=== PATIENT | female | born 1995 | race Caucasian/White ===

== ENCOUNTER 2020-06-29 11:07 | Inpatient (IN) | payer BC ==
[~2020-06-29] VITALS: Ht 170.2 cm; Wt 117.7 kg
[2020-06-29] VITALS (45 sets, daily range): BP systolic 126–162; BP diastolic 60–106; PULSE 71–105; TEMP 97.7–98.4
--- NOTE | 2020-06-29 11:11 | NUR ---
JENNIFER HERE FOR LABOR CHECK. PATIENT HAS BEEN JOHANNE SINCE 299. CHANGED INTO GOWN, ON EFM, ASSESEMENT COMPLETE, SVE PREFORMED, PATIENT BREATHRING THROUGH CONTRACTIONS. BLOOD SHOW NOTED ON GLOVE. PATIENT DENIES LEAKING OF FLUID. CONTRACTIONS AND BLOODY SHOW NOTED. DR LAWRENCE NOTIFIED. PATIENT ADMITTED TO LABOR. IV STARTED. REPORT GIVEN TO GENNA CANO 1140. CONSENTS SIGNED
[2020-06-29] MEDS ORDERED: ZOVIRAX400 MG (11:25)
[2020-06-29] MEDS ORDERED: LEXAPRO 10MG10 MG PO (11:25)
[2020-06-29] MEDS ORDERED: PRENATAL (11:26)
--- NOTE | 2020-06-29 12:25 | NUR ---
1120 PATIENT HERE FROM HOME WITH COMPLAINTS OF CONTRACTIONS GETTING STRONGER. SVE BY Joaquin BASSETT 3-/-2. ASSESSMENT COMPLETED. SEE A DANYELLE RN NOTES PLEASE.
--- NOTE | 2020-06-29 12:35 | NUR ---
1140 ASSUME CARE OF PATIENT FROM Joaquin BASSETT RN
[2020-06-29 12:36] LABS: BASO % 0.2 % (0.0-2.0); EOS # 0.1 (0.0-0.7); EOS % 0.4 % (0-4.0); GRAN % 76.7 % (42.2-75.2); HEMATOCRIT 40.3 % (37.0-47.0); HEMOGLOBIN 13.9 g/dl (12.5-16.0); LYMPH # 2.4 (1.2-3.4); LYMPH % 14.3 % (20.0-51.0); MEAN CELL VOLUME 83 fl (80.0-100.0); MEAN CORPUSCULAR HEMOGLOBIN 29 pg (27.0-31.0); MEAN CORPUSCULAR HGB CONC 35 g/dl (33.0-37.0); MEAN PLATELET VOLUME 10.5 fl (7.4-10.4); MONO # 1.3 (0.1-0.6); MONO % 7.9 % (1.7-9.3); PLATELET COUNT 284 K/mm3 (130-400); RED BLOOD COUNT 4.87 M/mm3 (4.10-5.30); REDCELL DISTRIBUTION WIDTH-CV 13.1 % (11.5-14.5)
--- NOTE | 2020-06-29 14:16 | NUR ---
1320 PATIENT SITS UP ON EDGE OF BED FOR EPIDURAL PLACEMENT. REY DEVLIN AT BEDSIDE. PROCEDURE EXPLAINED AT THIS TIME TO PATIENT AND BOYFIREND. VERBAL UNDERSTANDING NOTED. DENIES NEEDS. PLEASE SEE SENIOR HR GENERALIST NOTES FOR QUESTIONS PLEASE.
--- NOTE | 2020-06-29 14:20 | NUR ---
1400 READ CRIMP SETTER NOTES FOR QUESTIONS. PATIENT TOLERATES WELL. REPOSITIONED WEDGED TO LEFT. DENIES NEEDS
--- NOTE | 2020-06-29 14:39 | NUR ---
1430 DR LAWRENCE AT BEDSIDE. AROM WITH AMNIOHOOK. LARGE AMOUNT OF CLEAR FLUID NOTED. KRAMER PLACED AT THIS TIME.
--- NOTE | 2020-06-29 18:54 | NUR ---
FHR decel down to 90's bpm x3 minutes. This RN at the bedside. LR bolus started. Frequent position changes done with slow return to baseline 140 bpm. Roles updated on pt's status.
--- NOTE | 2020-06-29 20:32 | NUR ---
Attempted position change to left lateral. FHR decel down to 90's bpm. Repositioned pt back to right lateral with peanut ball. Slow return to baseline 140's bpm. Roles on unit. FHT reviewed. Update given.
--- NOTE | 2020-06-29 21:27 | NUR ---
2126- SVE by this RN 2. Roles on the unit and updated on pt's status. 2129- Green removed. Pushing instructions reviewed. 2132- Pushing started. 2144- FHR tracing intermittently tracing and unable to determine baseline. Attempts to adjust monitor. 2199- Unable to determine baseline due to FHR intermittenly tracing while pushing. Attempts to adjust monitor. 2214- Unable to determine baseline due to FHR intermittently tracing while pushing. 2231- Dr. Zafar at the bedside. Pt set up for delivery. 2238- of viable male . [place] placed on mom's abdomen. Cords clamped and cut. Care of the given to nursery RN at the bedside. 2246- of placenta. Pitocin started at 333ml/hr per order and protocol. Fundus firm and lochia WNL.
[2020-06-30] VITALS (8 sets, daily range): BP systolic 117–135; BP diastolic 52–82; PULSE 72–97; TEMP 97.4–98.8
--- NOTE | 2020-06-30 01:00 | NUR ---
Pt up to the bathroom with standby assist. Pt was not able to void at this time. Sadaf-care done. Pt transferred to room 216 ambulatory. Oriented to room, bed and call light within reach. Plan of care reviewed.
[2020-06-30] MEDS ORDERED: MOTRIN 800800 MG/TAB PO (08:33)
--- NOTE | 2020-06-30 09:51 | NUR ---
Initial visit; Patient thanked Dry Chain Worker for offering congratulations and God's blessings for the of her son. Dry Chain Worker thanked patient for choosing [facility].
[2020-07-01 09:30] VITALS: BP 139/82; PULSE 82; TEMP 97.8
--- NOTE | 2020-07-01 13:58 | NUR ---
Mycology Teacher consulted for the patient due to anxiety, depression, and dyslexia. This is the patient's first baby. Per nurse the patient was appropriate with the baby. The patient was also tearful. SW met with the patient and MARIA ELENA Maxwell. The patient has all the supplies they need for the baby. The patient's parents live in [place] and are very supportive. Hans reports his mother (lives in [place]) is supportive sometimes as well. SW addressed the patient's anxiety and depression. The patient's PCP assist with medications as needed. SW provided list of mental health providers in the area and the discussed the services they provide. SW provided information on Parents as Children information as well. The patient to sign up for WIC. SW collaborated the above information with the patient's nurse.
--- NOTE | 2020-07-01 15:58 | NUR ---
0900 PT TEARFUL THIS AM-STATED SHE HAD AN ARGUMENT WITH HER BOYFRIEND THIS AM. HE IS HERE WITH HER SHE IS TELLING THIS NURSE THIS. THEY SEEM TO BE OK AT THIS TIME WITH EACH OTHER.THIS REPORTED TO SOCIAL SER. THEY CAME TO VISIT PT THIS MORNING.
== END 2020-07-01 14:50 | disposition home or self-care (01) | DRG 806 ==
LOC: LDRO 11:07 → LDR 11:34 → OB 11:34
PROVIDERS: Obstetrics & Gynecology; ADMIT Obstetrics & Gynecology
PROC: 10E0XZZ Delivery of Products of Conception, External Approach (ICD-10-PCS; principal; 2020-06-29)
PROC: 0KQM0ZZ Repair Perineum Muscle, Open Approach (ICD-10-PCS; 2020-06-29)
PROC: 10907ZC Drainage of Amniotic Fluid, Therapeutic from Products of Conception, Via Natural or Artificial Opening (ICD-10-PCS; 2020-06-29)
DX: O99.824 Streptococcus B carrier state complicating childbirth (principal); O98.32 Other infections with a predominantly sexual mode of transmission complicating childbirth; Z37.0 Single live birth; O99.344 Other mental disorders complicating childbirth; F32.9 Major depressive disorder, single episode, unspecified; O70.1 Second degree perineal laceration during delivery; F41.9 Anxiety disorder, unspecified; A60.09 Herpesviral infection of other urogenital tract; Z3A.38 38 weeks gestation of pregnancy
CPT/HCPCS: J2540; J2590; J7120

== ENCOUNTER 2023-11-20 12:27 | Inpatient (IN) | payer MEDICAID ==
[~2023-11-20] VITALS: Ht 170.2 cm; Wt 122.3 kg
[2023-11-20] VITALS (19 sets, daily range): BP systolic 116–179; BP diastolic 62–96; PULSE 59–82; TEMP 97.7–98.2
[~2023-11-20 12:27] MED LIST: LEXAPRO20 MG PO; MOTRIN 800800 MG/TAB PO; PRENATAL; ZOVIRAX400 MG
--- NOTE | 2023-11-20 12:40 | NUR ---
PATIENT AMBULATORY TO LR4 WITH SPOUSE AT SIDE. THE PATIENT IS COMPLAINING OF CONTRACTIONS EVERY 5 MINUTES. SHE DENIES LOF OR VAGINAL BLEEDING, STATES THE BABY IS MOVING WELL. AFTER THE PATIENT GOES TO THE BATHROOM AND CHANGES INTO A CLEAN GOWN, THIS RN PLACES HER ON EFM AND TOCO. SVE AT THIS TIME 5-6/80/-2, INTACT WITH A BULGING BAG OF WATER. THE PATIENT IS POSITIONED TO WEDGE LEFT AND THIS RN NOTIFIES PHYSICIAN OF THE PATIENT'S ARRIVAL AND ACTIVE LABOR. SEE PHYSICIAN NOTIFICATION.
--- NOTE | 2023-11-20 13:10 | NUR ---
IV STARTED TO LEFT FOREARM, LABS DRAWN FROM IV START AND SENT TO LAB. URINE TO BE COLLECTED AND SENT FOR UDS. IVF BOLUS AT THIS TIME.
--- NOTE | 2023-11-20 13:40 | NUR ---
PT UP TO THE BATHROOM BEFORE ANESTHESIA ARRIVES TO PLACE EPIDURAL.
--- NOTE | 2023-11-20 13:53 | NUR ---
PT SITTING UP AT BEDSIDE FOR EPIDURAL PLACEMENT, THIS RN AT BEDSIDE AWAITING CLAUS VILLA
[2023-11-20] MEDS ORDERED: LR 1,000 ML IV SCH (14:00)
--- NOTE | 2023-11-20 14:02 | NUR ---
1356: CLAUS VILLA TO THE BEDSIDE DISCUSSES RISKS/BENEFITS WITH PATIENT, PT VERBALIZES UNDERSTANDING AND AGREES TO PROCEED. 1402: SINGLE SHOT PER CLAUS VILLA. PT TOLERATED PROCEDURE VERY WELL. PT IS REPOSITIONED TO WEDGE LEFT.
[2023-11-20] MEDS ORDERED: ROPivacaine PF 0.2% 200 ML IV ONE (14:06)
--- NOTE | 2023-11-20 16:00 | NUR ---
1507: DIFFICULTY TRACING HEART TONES, REPOSITIONED PATIENT TO LEFT LATERAL, ZOILARN DIRECTOR IN ROOM AT THIS TIME WITH RN, WELL GENNA CROOKS. REPOSITIONING PATIENT FOR OPTIMAL HEART TONES. 1520: SEE PHYSICIAN NOTIFICATION. THIS RN AT BEDSIDE FOR HEART TONES. 1529: SEE PHYSICIAN NOTIFICATION. THIS RN AT BEDSIDE FOR HEART TONES, SVE 7/100/0, INTACT BULGING BAG OF WATER. 1535: SROM, THICK MECONIUM STAINING. 1540: SVE COMPLETE/+2 HEART TONES 60'S AND PROLONGED FOR 3 MINUTES. 1541: SEE PHYSICIAN NOTIFICATION; CALLED FOR IMPENDING DELIVERY. 1546: ARRIVES AND GETS GOWNED AND GLOVED. THE PATIENT IS PREPPED FOR VAGINAL DELIVERY. 1549: OF VIABLE FEMALE INFANT, STIMULATED AND PLACED ON MATERNAL ABDOMEN, CORD CLAMPED X2 AND CUT BY FOB, INFANT MOVED TO WARMER AND CARE ASSUMED BY GENNA [place]ING[place]. CORD GASSESS OBTAINED BY , PLACED ON ICE AND SENT TO RESPIRATORY. CORD BLOOD OBTAINED AND SENT TO LAB. CORD SEGMENT OBTAINED AND SENT FOR CORD STAT. EPIDURAL TURNED OFF AT THIS TIME. 1558: OF INTACT PLACENTA, PITOCIN STARTED PER HOSPITAL POLICY AT 333ML/HR. FUNDAL MASSAGE PER . PT PERINEUM IS INTACT. PATIENT REPOSITIONED WITH ICE PACK TO THE PERINEUM. FUNDUS FIRM AND AT THE UMBILICUS. SCANT LOCHIA. 1600: RECOVERY STARTED AT THIS TIME.
[2023-11-20] MEDS ORDERED: Witch Hazel 50% Pads Bulk TUB TP PRN (16:15)
[2023-11-20] MEDS ORDERED: Naloxone 0.4 MG/ML VIAL IV PRN (16:15)
[2023-11-20] MEDS ORDERED: oxyCODONE 5 MG TAB PO PRN (16:15)
[2023-11-20] MEDS ORDERED: Acetaminophen 500 MG TAB PO SCH (16:15)
[2023-11-20] MEDS ORDERED: Phenylephrine/Mineral Oil/Petrolatum 57 GM TUBE RC PRN (16:15)
[2023-11-20] MEDS ORDERED: Ibuprofen 800 MG TAB PO SCH (16:15)
[2023-11-20] MEDS ORDERED: Measles/Mumps/Rubella Virus Vaccine Live w Diluent 0.5 ML VIAL SQ SCH (16:15)
[2023-11-20] MEDS ORDERED: Mag/Al Hydrox/Simeth Susp 30 ML CUP PO PRN (16:15)
[2023-11-20] MEDS ORDERED: Magnes Hydrox (MOM) 80 MG/ML 30 ML CUP PO PRN (16:15)
[2023-11-20] MEDS ORDERED: Loratadine 10 MG TAB PO PRN (16:15)
[2023-11-20] MEDS ORDERED: Sennosides/Docusate 8.6-50 MG TAB PO SCH (17:00)
--- NOTE | 2023-11-20 18:55 | NUR ---
1855-PT UNSTEADY ON LEGS AND ASSISTED TO BR WITH CASSIA STEADY. PT VOIDED 250ML AND PERICARE DONE AND EXPLAINED TO PT. NEW GOWN, PANTIES AND NEW PERIPAD TO PATIENT AT THIS TIME AND THEN PATIENT TO ROOM VIA CASSIA STEADY AND ASSISTED INTO BED. PLAN OF CARE DISCUSSED AT THIS TIME AND PT INSTRUCTED TO CALL FOR ASSIST WHEN GETTING UP THE NEXT TIME.
[2023-11-20] MEDS ORDERED: BUSPAR10 MG PO (20:47)
[2023-11-20] MEDS ORDERED: VALTREX1 GM PO (20:48)
[2023-11-20] MEDS ORDERED: traZODone 50 MG TAB PO PRN (21:00)
[2023-11-21 07:00] VITALS: BP 130/84; PULSE 74; TEMP 98.4
--- NOTE | 2023-11-21 09:41 | NUR ---
Initial visit; Parents thanked [employer] Professionals for looking in on them and offering congratulations and God's blessings for the of their daughter. [employer] thanked family for choosing [facility] and wished them well.
[2023-11-21 11:00] VITALS: BP 128/67; PULSE 70; TEMP 98.4
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
[2023-11-21 16:00] VITALS: BP 130/69; PULSE 75
[2023-11-21 20:15] VITALS: BP 124/86; PULSE 73; TEMP 98
[2023-11-22 07:45] VITALS: BP 112/70; PULSE 61; TEMP 97.6
== END 2023-11-22 15:31 | disposition home or self-care (01) | DRG 806 ==
LOC: LDRO 12:27 → LDR 13:00 → OB 19:00 → LDR 19:00 → OB 22:58 → LDR 11-22 15:31 → OB 11-22 15:31
PROVIDERS: Obstetrics & Gynecology; ADMIT Obstetrics & Gynecology
PROC: 10E0XZZ Delivery of Products of Conception, External Approach (ICD-10-PCS; principal; 2023-11-20)
DX: O99.344 Other mental disorders complicating childbirth (principal); O98.32 Other infections with a predominantly sexual mode of transmission complicating childbirth; Z37.0 Single live birth; F32.A Depression, unspecified; A60.09 Herpesviral infection of other urogenital tract; O77.0 Labor and delivery complicated by meconium in amniotic fluid; O69.81X0 Labor and delivery complicated by cord around neck, without compression, not applicable or unspecified; O76 Abnormality in fetal heart rate and rhythm complicating labor and delivery; F41.9 Anxiety disorder, unspecified; Z3A.39 39 weeks gestation of pregnancy
CPT/HCPCS: J2795